=== PATIENT | male | born 1940 | race Two or more races ===

== ENCOUNTER 2025-08-15 08:28 | Emergency (ER) | payer SELFPAY ==
[2025-08-15 08:31] VITALS: BP 156/96
--- NOTE | 2025-08-15 08:54 | ED.GENMED ---
History of Present Illness
General
Chief Complaint: Oral/Mouth Problem
Time Seen by Provider: 08/15/25 08:47
History of Present Illness
History of Present Illness:
84-year-old male presents to the emergency department with his daughter for evaluation of a known malignant head and neck mass. Patient apparently recently immigrated from [facility], he had a biopsy performed 1 month ago while in [facility]
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 He was seen at the [facility] emergency department on August 03 imaging performed which expansile soft tissue lesion invading into the
left mandibular ramus and close proximity to the mandibular foramen suspicious for neoplasm. He was referred to [facility] head and neck surgery and has an appointment scheduled in 2 weeks. He is having increasing pain. Daughter brought him to the
emergency department here today requesting only repeat biopsy for confirmation.
Review of Systems
Review of Systems
Allergies reviewed?: Yes
All Other Systems: ROS reviewed and negative except as documented in HPI and ROS
Phy Exam
Physical Exam
Physical Exam:
GEN: Well appearing, NAD, WDWN
HEENT: Oral mucosa moist, no scleral icterus
Cardiac: Regular rate
Lung: No respiratory distress, no tachypnea
MSK: No gross deformity or injuries
Skin: Good color, no pallor or jaundice, no rashes
Neuro: AO x3, moves all extremities freely
Psych: Calm, cooperative
Course
Vital Signs
Initial and Last Documented VS:
Initial Vital Signs
Temp Pulse Resp BP Pulse Ox
98.4 F 66 18 156/96 98
08/15/25 08:31 08/15/25 08:31 08/15/25 08:31 08/15/25 08:31 08/15/25 08:31
Last Documented Vital Signs
Temp Pulse Resp BP Pulse Ox
98.4 F 66 18 156/96 98
08/15/25 08:31 08/15/25 08:31 08/15/25 08:31 08/15/25 08:31 08/15/25 09:01
MDM/Problems Addressed
MDM/Problems Addressed:
[facility], high suspicion for malignancy on imaging, patient has already had a biopsy performed confirming this at outside hospital. He has planned follow-up with head and neck surgery through [facility]. No need for urgent
labs or imaging at this time
*Pulse Oximetry
SaO2: 98
Oxygen Mode of Delivery: Room air
Patient hypoxic: no
*Critical Care Note
Total Time (30-74mins, 75-104mins- exclusive of procedures): Not Applicable
ED Attending Note
-
Portions of this chart may have been created with voice recognition software.� Occasional wrong word or��sound alike� substitutions may have occurred due to the inherent limitations of voice recognition software.
Discharge Plan
Departure
Patient Disposition: Home (Routine Discharge)
Date of Disposition: 08/15/25
Time of Disposition: 08:58
Patient with high blood pressure during this ER visit?: No
Discharge Problem:
Oral malignant neoplasm
Prescriptions:
New
oxycodone-acetaminophen [Percocet] 5-325 mg tablet
1 tab PO Q6HPRN PRN (Reason: pain) Qty: 10 0RF
Activity Restrictions/Additional Instructions:
The combination of the biopsy results from [facility] and CAT scan results from [facility] are highly suspicious for cancer. I do not feel there is any need for repeat biopsy however this would be determined by the head and neck
specialist with whom you are scheduled next month. The evaluation performed at [facility] ruled out an infectious process. I have prescribed you medication for pain as needed, please follow-up with the specialist next month as planned
La combinaci�n de los resultados de la biopsia de [facility] y la tomograf�a computarizada de la [facility] indica frank fito sospecha de c�ncer. No considero necesario repetir la biopsia; sin embargo, esto lo determinar� el
especialista en juan y alma con quien tiene programada la connie el pr�ximo mes. La evaluaci�n realizada en [place] descart� un proceso infeccioso. Le he recetado analg�sicos seg�n sea necesario; por favor, acuda a la consulta del especialista
el pr�ximo mes seg�n lo previsto.
Interventions
Interventions:
*Risk Screen - Suicide Last Done: 08/15/25 08:31
*General Assessment Last Done: 08/15/25 08:31
*Neglect/Abuse Screening Last Done: 08/15/25 09:05
*ED- Fall Risk Assessment Last Done: 08/15/25 09:05
*ED COVID-19 Vaccine History Last Done: 08/15/25 09:05
*ED Influenza Vaccine History Last Done: 08/15/25 09:05
*Nursing Disposition Last Done: 08/15/25 09:05
Discharge Date and Time
Discharge Date/Time: 08/15/25 09:05
Print Language: [id number]
== END 2025-08-15 09:05 | disposition home or self-care (01) ==
LOC: EMR 08:28
PROVIDERS: EMERGENCY PHYSICIAN Emergency Medicine
DX: C06.9 Malignant neoplasm of mouth, unspecified (principal)
CPT/HCPCS: 99282